=== PATIENT | male | born 1950 | race Caucasian/White ===

== ENCOUNTER 2016-09-19 14:48 | Day surgery (SDC) | payer OTHER ==
[~2016-09-19] VITALS: Ht 182.9 cm; Wt 124.3 kg
[~2016-09-19 14:48] MED LIST: ONDANSETRON HCL 4 MG/2 ML VIAL IV PUSH ONE; PHENYLEPH/NS 1000 MCG/10 ML SYR IV ONE; PROPOFOL 200 MG/20 ML AMP IV ONE; ePHEDrine/NS 50 MG/5 ML SYR IV ONE
[2016-09-19 15:41] VITALS: BP 121/80; PULSE 68; RESP 18; TEMP 97.7; O2SAT 97
[2016-09-19] MEDS ORDERED: TROPICAMIDE 1% OPTH SOLN 2 ML BTL ONE (15:47)
[2016-09-19] MEDS ORDERED: PHENYLEPHRINE HCL 0.5% NASAL SPRAY 15 ML BTL ONE (15:47)
[2016-09-19] MEDS ORDERED: CYCLOPENTOLATE HCL 1% OPHT SOLN 2 ML BTL ONE (15:47)
[2016-09-19] MEDS ORDERED: ATROPINE SULFATE 1% OPHT SOLN 2 ML BTL ONE ×2 (15:47→15:58)
[2016-09-19] MEDS ORDERED: PHENYLEPHRINE HCL 2.5% OPTH SOLN 2 ML BTL ONE (15:48)
[2016-09-19] MEDS ORDERED: EPINEPHrine HCL (1:1000) 1 MG/ML VIAL ONE (15:57)
[2016-09-19] MEDS ORDERED: DEXAMETHASONE SOD PHOS 4 MG/ML VIAL ONE (15:57)
[2016-09-19] MEDS ORDERED: STERILE WATER FOR INJ 20 ML VIAL ONE (15:57)
[2016-09-19] MEDS ORDERED: BUPIVACAINE HCL PF 0.75% 10 ML VIAL ONE (15:57)
[2016-09-19] MEDS ORDERED: TRIAMCINOLONE ACETONIDE 40 MG/ML VIAL ONE (15:57)
[2016-09-19] MEDS ORDERED: ceFAZolin INJ 1,000 MG VIAL ONE (15:58)
[2016-09-19] MEDS ORDERED: TOBRAMYCIN/DEXAMETHASONE OPTH OINT 3.5 GM TUBE ONE (15:58)
[2016-09-19] MEDS ORDERED: ASPI81CH CHEW (15:59)
[2016-09-19] MEDS ORDERED: LIDOCAINE HCL 2% 50 ML VIAL ONE (15:59)
[2016-09-19] MEDS ORDERED: ALLO300T2 PO (15:59)
[2016-09-19] MEDS ORDERED: ENAL20TA PO (15:59)
[2016-09-19] MEDS ORDERED: PRAV40TA2 PO (16:00)
[2016-09-19] MEDS ORDERED: METO50TA PO (16:00)
[2016-09-19] MEDS ORDERED: RANI300T PO (16:01)
[2016-09-19] MEDS ORDERED: MIDAZOLAM HCL 2 MG/2 ML VIAL ONE (16:29)
[2016-09-19] MEDS ORDERED: FAMOTIDINE 20 MG/2 ML VIAL ONE (16:30)
[2016-09-19] MEDS ORDERED: BALANCED SALT SOLN OPHT IRRIG 15 ML BTL RIGHT EYE ONE (17:21)
[2016-09-19] MEDS ORDERED: DO NOT ADM ANY ANTICOAGULANT DRUGS XX PRN (18:31)
[2016-09-19] MEDS ORDERED: METOPROLOL TARTRATE 25 MG TAB PO PRN (19:00)
[2016-09-19] MEDS ORDERED: LACTATED RINGER'S 1000 ML IV SCH (19:00)
[2016-09-19] MEDS ORDERED: PHENYLEPHRINE HCL 2.5% OPTH SOLN 2 ML BTL RIGHT EYE SCH (19:00)
[2016-09-19] MEDS ORDERED: ATROPINE SULFATE 1% OPHT SOLN 5 ML BTL RIGHT EYE SCH (19:00)
[2016-09-19] MEDS ORDERED: INSULIN HUMAN REGULAR 1,000 UNITS/10 ML VIAL SQ PRN (19:00)
[2016-09-19] MEDS ORDERED: SODIUM CHLORID 0.9% 500 ML IV SCH (19:00)
[2016-09-19] MEDS ORDERED: CYCLOPENTOLATE HCL 1% OPHT SOLN 2 ML BTL RIGHT EYE SCH (19:00)
[2016-09-19] MEDS ORDERED: TROPICAMIDE 1% OPTH SOLN 2 ML BTL RIGHT EYE SCH (19:00)
[2016-09-19] MEDS ORDERED: ACETAMINOPHEN 500 MG CPLT PO PRN (19:15)
[2016-09-19 19:30] VITALS: BP 104/52; PULSE 71; RESP 14; TEMP 97.9; O2SAT 95
[2016-09-19] MEDS ORDERED: MOXIFLOXACIN 0.5% OPHT SOLN 3 ML BTL RIGHT EYE SCH (21:00)
[2016-09-19] MEDS ORDERED: prednisoLONE ACETATE 1% OPHT SUSP 5 ML BTL RIGHT EYE SCH ×2 (21:00)
[2016-09-20] MEDS ORDERED: CYCLOPENTOLATE HCL 1% OPHT SOLN 2 ML BTL RIGHT EYE SCH (09:00)
--- NOTE | 2016-09-20 22:54 | EKG ---
Date Performed: 09/19/2016 Time Performed: 15:29:56 PTAGE: 66 years EKG: ELECTRONIC VENTRICULAR PACEMAKER ABNORMAL RHYTHM ECG NO PREVIOUS TRACING DOCTOR: John Vargas Interpretating Date/Time 09/20/2016 22:47:56
--- NOTE | 2016-09-25 08:33 | MP ---
cc: KP CASTRO MD DATE OF SURGERY September 19, 2016 DATE OF 1950 PREOPERATIVE DIAGNOSES 1. Retinal detachment right eye. 2. Multiple retinal tears right eye. POSTOPERATIVE DIAGNOSES 1. Retinal detachment right eye. 2. Multiple retinal tears right eye. PROCEDURE Pars plana vitrectomy, retinal detachment repair, endolaser and insertion of 12% C3F8 gas right eye. COMPLICATIONS None. BLOOD LOSS Less than 1 cc. ANESTHESIA General. INDICATIONS FOR PROCEDURE This patient presented with worsening of peripheral vision in his right eye. 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 The patient elected for surgical correction in hopes to save the visual acuity. PROCEDURE NOTE After informed consent was obtained, the patient was brought to the operating room. General anesthesia was established. The right eye was prepped and draped in sterile fashion with Betadine in the conjunctival fornix. A three port pars vitrectomy was established with self-retaining infusion cannula. Core vitreous was evacuated. Vitreous traction to peripheral retina was relieved. PFO was instilled and subretinal fluid removed via the retinal tears. The retina was noted to become reattached quite nicely. Endolaser was applied surrounding retinal defects. Air-fluid exchange was carried out and the retina was noted to remain nicely attached. 12% C3F8 gas was instilled. The trocars were removed and sclerotomies closed. A subconjunctival injection of Ancef and dexamethasone was given. The eye was patched with Tobramycin ointment. The patient was brought to the recovery room in stable condition and will continue followup with [facility] for his postoperative care. Kp Castro MD KW/SSB /5:03 PM /8:24 AM
== END 2016-09-19 19:33 | disposition home or self-care (01) ==
LOC: HOR 14:48 → HSDI 18:26 → HOR 19:33
PROVIDERS: ATTEND Ophthalmology
DX: H33.021 Retinal detachment with multiple breaks, right eye (principal); I10 Essential (primary) hypertension; R94.31 Abnormal electrocardiogram [ECG] [EKG]
CPT/HCPCS: 00145; 67108; 93005; J0171; J0690; J1100; J2250; J2370; J2405; J3010; J3301